=== PATIENT | male | born 1955 | race African-American/Black ===

== ENCOUNTER → 2016-10-11 | Outpatient (CLI) | payer MEDICARE, OTHER ==
[~2016-10-11] MED LIST: ACETAMINOPHEN GT; ACETAMINOPHEN325 MG GT; ADULT MUCU100 MG/5 M GT; ADULT TUSS100 MG/5 M DOB; BACID; BACID GT; BACID PEG; BACLOFEN DOB; BACLOFEN10 MG GT; BACLOFEN10 MG PO; BAG BALM; BAZA PROTECT CR57 GM TOP; CALCIUM CARBON GT; CALCIUM1 TAB.CHEW GT; CARDURA GT; CARDURA1 MG GT; CARDURA2 MG GT; CENTRUM SILVER DOB; CEROVITE SILVER1 TA1 GT; CERTA VITE9 MG/15 ML GT; CETIRIZINE HCL10 MG GT; DIASTAT ACUDIAL1 KIT; DIASTAT ACUDIAL1 KIT PR; DIASTAT10 MG PR; DIAZEPAM; DIAZEPAM GT; DIAZEPAM5 MG/5 M1 GT; DIAZEPAM5 MG/5 M1 PEG; DIAZEPAM5 MG/M2; DIFLUCAN GT; ERYTHROMYC200 MG/5 M GT; ERYTHROMYCIN60 ML GT; FIRST-OMEPR2 MG/1 ML GT; FLOVENT DISKUS50 MCG; GAS RELIEF40 MG/0.1; GAS RELIEF40 MG/0.6 PO; GENTAMICIN IM; GOLYTELY4000 ML DOB; GUAIFENESIN GT; IMMUNOTHERAPY; IMMUNOTHERAPY SUBQ; IPRAT-ALBUT 0.5-3 ML INH; IPRATROPIUM; KCL PEG; KEPPRA750 MG GT; LACTULOSE10 G/15 ML GT; LAMICTAL ODT200 MG GT; LAMICTAL150 MG GT; LEVAQUIN GT; LEVOTHYROXINE50 MC1 GT; LIORESAL I10 MG/5 ML GT; LORTAB 5-325 M1 EACH GT; MAG OXIDE PO; MAG-OX 400400 M1 DOB; MAGNESIUM400 MG DOB; MAGNESIUM400 MG GT; MAPAP160 MG/51 PO; MIRALAX17 GM DOB; MIRALAX255 GM GT; MUCOMYST; MUCOMYST200 MG/ML; MULTIVITAM9 MG/15 ML GT; MYLICON40 MG/0.1 GT; NASACORT AQ16.5 GM; NASALIDE INHALE25 ML; NEURONTIN GT; NEURONTIN300 MG GT; NEURONTIN300 MG PEG; NO MEDICATIONS; OCEAN104 ML; OCEAN45 ML; POTASSIUM40 MEQ/15 GT; PREDNISOLONE; PREVACID SOLUTA30 MG GT; PREVACID SOLUTAB GT; PROBIOTIC1 EACH; PULMICORT200 MCG/AE INH; REGLAN5 MG; REGLAN5 MG GT; REGLAN5 MG PEG; RISAMINE OINTM113 GM TOP; ROBAFEN100 MG/5 M GT; ROBITUSSIN COUGH GT; ROBITUSSIN S/F118 ML GT; ROBITUSSIN100 MG/51 GT; SENNA CONCENTR8.6 MG GT; SILVASORB480 ML TOP; SINGULAIR DOB; SINGULAIR GT; SINGULAIR PO; SKIN TREATMENT225 GM TOP; SODIUM CITRATE GT; TOBRAMYCIN IV; TYLENOL325 MG/10. GT; ULTRAM GT; UTI-STAT L3875 MG/31 GT; VITAMIN D1000 UNI1 GT; VITAMIN D1000 UNI2 GT; VITAMIN D1000 UNI2 PO; XOPENEX1.25 MG/0. NEB; ZANTAC150 M1 GT; ZITHROMAX GT; ZOLOFT GT; ZYRTEC GT; ZYRTEC10 M1 GT; ZYRTEC10 M2 PO; [UNRECOGNIZED DRUG - OTHER] DOB; [UNRECOGNIZED DRUG - OTHER] GT; [UNRECOGNIZED DRUG - OTHER] IV
== END | disposition home or self-care (01) ==
LOC: CSSDAY 10:00
DX: M81.0 Age-related osteoporosis without current pathological fracture (principal)
CPT/HCPCS: 96372; J0897